=== PATIENT | female | born 1995 | race Asian ===

== ENCOUNTER 2025-01-02 15:48 | Day surgery (SDC) | payer BC ==
[2025-01-02 16:36] VITALS: BMI 33.0
[2025-01-02 17:05] LABS: Fetal Membranes Rupture No Membranes Rupture (No Rupture)
== END 2025-01-02 17:30 | disposition home health service, planned readmission (86) ==
LOC: CSHLD/OP 15:48
PROVIDERS: ATTEND Obstetrics & Gynecology
DX: Z03.71 Encounter for suspected problem with amniotic cavity and membrane ruled out (principal); O47.1 False labor at or after 37 completed weeks of gestation; Z67.10 Type A blood, Rh positive; Z3A.37 37 weeks gestation of pregnancy
CPT/HCPCS: 84112; 87480; 87510; 87660

== ENCOUNTER 2025-01-04 22:30 | Inpatient (IN) | payer BC ==
[2025-01-04 22:57] VITALS: BMI 33.0
[2025-01-04] MEDS ORDERED: Ondansetron PF 4 MG/2 ML Vial IVP PRN (23:16)
[2025-01-04] MEDS ORDERED: Lidocaine 1% (PF) 30 ML VIAL SC PRN (23:16)
[2025-01-04] MEDS ORDERED: hydrALAZINE 20 MG/ML VIAL SLOW IVP PRN (23:16)
[2025-01-04] MEDS ORDERED: Acetaminophen 500 MG TAB PO PRN (23:17)
[2025-01-04] MEDS ORDERED: Tranexamic Acid 1,000 MG/10 ML VIAL IVP PRN (23:17)
[2025-01-04] MEDS ORDERED: Diphenoxylate HCl/Atropine Tablet PO PRN ×2 (23:17)
[2025-01-04] MEDS ORDERED: Carboprost 250 MCG/ML AMP IM PRN (23:17)
[2025-01-04] MEDS ORDERED: Methylergonovine 0.2 MG/ML VIAL IM PRN (23:17)
[2025-01-04 23:24] LABS: Hematocrit 39.4 % (34.9-44.5); Hemoglobin 12.7 g/dL (12.0-15.5); Mean Corpuscular Hemoglobin 26.0 pg (27.0-33.0); Mean Corpuscular Volume 80.6 fL (81.6-98.3); Platelet Count 334 10x3/uL (150-450); Red Blood Cell (RBC) Count 4.89 10x6/uL (3.90-5.03); White Blood Cell (WBC) Count 12.45 10x3/uL (3.5-10.5)
[2025-01-04] MEDS ORDERED: Oxytocin 30 units/NS 500 ML 500 ML IV SCH (23:30)
[2025-01-04 23:53] LABS: Hep B Surf Ag - L&D Non-Reactive S/CO (NonReactive)
[2025-01-04 23:55] LABS: Syphilis Antibody Index 0.10 S/CO (<1.00 Non-Reactive)
[2025-01-04] MEDS: fentaNYL/Ropivacaine Epidural 100 ML ONE (23:56)
[2025-01-05] MEDS ORDERED: diphenhydrAMINE 50 MG/ML VIAL IVP PRN
[2025-01-05] MEDS ORDERED: Communication Order-Pharmacy FS SCH
[2025-01-05] MEDS ORDERED: Acetaminophen 325 MG TAB PO PRN
[2025-01-05] MEDS ORDERED: fentaNYL 2 mcg/Ropivacaine 0.2% Epidural 100 ML CADD EPIDURAL SCH
[2025-01-05] MEDS: Oxytocin 30 units/NS 500 ML 500 ML IV SCH (10:24)
[2025-01-05] MEDS: Ibuprofen 800 MG TAB PO PRN (11:54)
[2025-01-05] MEDS ORDERED: hydrALAZINE 20 MG/ML VIAL SLOW IVP PRN (12:15)
[2025-01-05] MEDS ORDERED: Oxytocin 30 units/NS 500 ML 500 ML IV SCH (12:15)
[2025-01-05] MEDS ORDERED: Bisacodyl 10 MG SUPP PR PRN (12:15)
[2025-01-05] MEDS ORDERED: Ondansetron PF 4 MG/2 ML Vial IVP PRN ×2 (12:15)
[2025-01-05] MEDS ORDERED: Milk Of Magnesia 30 ML UDCUP PO PRN (12:15)
[2025-01-05] MEDS: HYDROcodone/Acetaminophen 5/325 mg Tablet PO PRN (12:59)
[2025-01-05] MEDS: Witch Hazel 100 PAD JAR TOP PRN (13:46)
[2025-01-05] MEDS: Benzocaine-Menthol 82.5 ML CAN TOP PRN (13:46)
[2025-01-05] MEDS: Ibuprofen 800 MG TAB PO SCH (14:13)
[2025-01-05] MEDS: Ferrous Sulfate 325 MG TAB PO SCH (14:36)
[2025-01-06 09:10] VITALS: BP 119/67; TEMP 98.2
== END 2025-01-06 14:55 | disposition home or self-care (01) | DRG 807 ==
LOC: CSHLD/OP 22:30 → CSHLD 23:44 → CSHPP 01-05 12:09
PROVIDERS: ADMIT Obstetrics & Gynecology; ATTEND Obstetrics & Gynecology
PROC: 10E0XZZ Delivery of Products of Conception, External Approach (ICD-10-PCS; principal; 2025-01-06)
PROC: 4A1HXCZ Monitoring of Products of Conception, Cardiac Rate, External Approach (ICD-10-PCS; 2025-01-06)
DX: O70.0 First degree perineal laceration during delivery (principal); Z37.0 Single live birth; Z3A.38 38 weeks gestation of pregnancy
CPT/HCPCS: 36415; 51702; 85027; 86780; 86850; 86900; 86901; 87340; 99285; J2590